=== PATIENT | male | born 1955 | race Caucasian/White ===

== ENCOUNTER → 2023-12-03 06:39 | Outpatient (REF) | payer BC, SELFPAY | LOC: RAD 06:39 | PROVIDERS: ATTENDING PHYSICIAN Family Medicine | DX: E06.9 Thyroiditis, unspecified (principal) | CPT/HCPCS: 76536 ==

== ENCOUNTER → 2024-10-27 06:30 | Outpatient (REF) | payer BC, SELFPAY | LOC: RAD 06:30 | PROVIDERS: ATTENDING PHYSICIAN Physician Assistant Medical; FAMILY PHYSICIAN Family Medicine | DX: R60.0 Localized edema (principal); E04.1 Nontoxic single thyroid nodule; E06.9 Thyroiditis, unspecified | CPT/HCPCS: 76536; 93970 ==